=== PATIENT | female | born 1990 | race African-American/Black ===

== ENCOUNTER 2017-04-30 23:50 | Emergency (ER) | payer OTHER ==
[~2017-04-30] VITALS: Ht 160 cm; Wt 63.0 kg
[~2017-04-30 23:50] MED LIST: ALBU0.086 INH; ALBU17I INH; ALBU6.7H INH; PRED20 PO
[2017-04-30 23:52] VITALS: BP 122/62; PULSE 67; RESP 18; TEMP 98.7; O2SAT 100
[2017-05-01] MEDS ORDERED: SYMB80AE INH (00:09)
[2017-05-01] MEDS ORDERED: ALBUAER3 INH (00:09)
[2017-05-01 00:22] LABS: BLOOD, URINE NEG (NEG); GLUCOSE,URINE NEG (NEG); KETONE, URINE NEG (NEG); NITRITE,URINE NEG (NEG); SQUAMOUS EPITHELIAL CELL URINE <1 /hpf (0-5); URINE COLOR LIGHT-YELLOW (YELLW/STRAW)
[2017-05-01 00:25] LABS: COMMENT (UR) CULT NOT INDICATED; CULTURE IF INDICATED CULT NOT INDICATED
--- NOTE | 2017-05-01 00:44 | PD ---
HPI Chief Complaint: Abdominal Pain Time Seen by Provider: 00:00 Travel History International Travel<30 days: No Contact w/Intl Traveler<30days: No Traveled to known affect area: No History of Present Illness HPI Patient is 26-year-old female says she is 10 weeks and is having bilateral lower abdominal pain. No dysuria no flank pain no fevers no chills. No past medical history. Patient reports focally right lower quadrant pain that is dull and aching right lower quadrant is more more painful than suprapubic or left. Denies nausea denies vomiting denies change in bowel habits. Bedside sonogram done by this Barney shows a M-mode heart at 167 and crown-rump length is 10 weeks 2 days by measurements by this Barney POC ultrasound bedside [facility] Past Medical History Asthma: Yes Diminished Hearing: No Integumentary: Yes (eczema) Immunizations Current: Yes Pneumonia: Yes ?: Past Surgical History Surgical History: No Previous Surgery Social History Alcohol Use: No Tobacco Use: No Substance Use: No Allergies-Medications (Allergen,Severity, Reaction): Coded Allergies: fish oil (Unverified Allergy, Severe, lip swelling, SOB, hives, 04/30/17) ipratropium (Unverified Allergy, Severe, SOB, swelling, hives, 04/30/17) Reported Meds & Prescriptions Reported Meds & Active Scripts Active Reported Symbicort Inh (Budesonide/Formoterol Fumarate) 80-4.5 Mcg/Act Aero 2 Puff INH Q12HR Proair Hfa 8.5 GM Inh (Albuterol Sulfate) 90 Mcg/Act Aer 2 Puff INH Q4-6H PRN 108 mcg/actuation Review of Systems Except as stated in HPI: all other systems reviewed are Neg Gastrointestinal: Positive: Abdominal Pain Physical Exam Narrative GENERAL: Nontoxic-appearing awake alert oriented 3 SKIN: Warm and dry. HEAD: Atraumatic. Normocephalic. EYES: Pupils equal and round. No scleral icterus. No injection or drainage. ENT: No nasal bleeding or discharge. Mucous membranes pink and moist. NECK: Trachea midline. No JVD. CARDIOVASCULAR: Regular rate and rhythm. RESPIRATORY: No accessory muscle use. Clear to auscultation. Breath sounds equal bilaterally. GASTROINTESTINAL: Abdomen soft, bilateral lower abdominal tenderness as well as suprapubic tenderness. Hepatic and splenic margins not palpable. MUSCULOSKELETAL: Extremities without clubbing, cyanosis, or edema. No obvious deformities. NEUROLOGICAL: Awake and alert. No obvious cranial nerve deficits. Motor grossly within normal limits. Five out of 5 muscle strength in the arms and legs. Normal speech. PSYCHIATRIC: Appropriate mood and affect; insight and judgment normal. POC ultrasound bedside.. M-mode heart seen measured at 167 on 3 different modes & crown-rump length is 10 weeks 2 days based on measurements correlates well with her dates Data Data Last Documented VS Vital Signs Date Time Temp Pulse Resp B/P (MAP) Pulse Ox O2 Delivery O2 Flow Rate FiO2 04/30/17 23:52 98.7 67 18 122/62 (82) 100 Room Air Orders Orders Urinalysis - C+S If Indicated (05/01/17 00:00) Ed Urine Pregnancytest Poc (05/01/17 00:02) Complete Blood Count With Diff (05/01/17 01:15) Comprehensive Metabolic Panel (05/01/17 01:15) Lipase (05/01/17 01:15) C-Reactive Protein (Crp) (05/01/17 01:15) Sodium Chlor 0.9% 1000 Ml Inj (Ns 1000 M (05/01/17 03:00) Complete Blood Count With Diff (05/01/17 05:12) Lipase (05/01/17 05:12) Comprehensive Metabolic Panel (05/01/17 05:12) Mri Abdomen W/O Contrast (05/01/17 ) Dext 5%-Nacl 0.45% 1000 Ml Inj (D5w-1/2 (05/01/17 06:45) NPO (05/01/17 06:43) Labs Laboratory Tests Test 05/01/17 00:06 05/01/17 01:19 05/01/17 05:20 Urine Color LIGHT-YELLOW Urine Turbidity CLEAR Urine pH 7.0 Urine Specific [place] 1.006 Urine Protein NEG mg/dL Urine Glucose (UA) NEG mg/dL Urine Ketones NEG mg/dL Urine Occult Blood NEG Urine Nitrite NEG Urine Bilirubin NEG Urine Urobilinogen LESS THAN 2.0 MG/DL Urine Leukocyte Esterase NEG Urine WBC 1 /hpf Urine Squamous Epithelial Cells <1 /hpf Microscopic Urinalysis Comment CULT NOT INDICATED White Blood Count 9.6 TH/MM3 8.9 TH/MM3 Red Blood Count 4.19 MIL/MM3 3.91 MIL/MM3 Hemoglobin 12.4 GM/DL 11.5 GM/DL Hematocrit 36.1 % 33.8 % Mean Corpuscular Volume 86.3 FL 86.5 FL Mean Corpuscular Hemoglobin 29.5 PG 29.5 PG Mean Corpuscular Hemoglobin Concent 34.2 % 34.1 % Red Cell Distribution Width 14.4 % 14.2 % Platelet Count 327 TH/MM3 291 TH/MM3 Mean Platelet Volume 8.8 FL 8.7 FL Neutrophils (%) (Auto) 62.8 % 65.8 % Lymphocytes (%) (Auto) 24.5 % 22.7 % Monocytes (%) (Auto) 8.7 % 7.3 % Eosinophils (%) (Auto) 3.4 % 3.7 % Basophils (%) (Auto) 0.6 % 0.5 % Neutrophils # (Auto) 6.0 TH/MM3 5.8 TH/MM3 Lymphocytes # (Auto) 2.3 TH/MM3 2.0 TH/MM3 Monocytes # (Auto) 0.8 TH/MM3 0.7 TH/MM3 Eosinophils # (Auto) 0.3 TH/MM3 0.3 TH/MM3 Basophils # (Auto) 0.1 TH/MM3 0.0 TH/MM3 CBC Comment DIFF FINAL DIFF FINAL Differential Comment Blood Urea Nitrogen 7 MG/DL 5 MG/DL Creatinine 0.53 MG/DL 0.50 MG/DL Random Glucose 79 MG/DL 82 MG/DL Total Protein 7.2 GM/DL 6.5 GM/DL Albumin 3.4 GM/DL 2.9 GM/DL Calcium Level 8.7 MG/DL 8.3 MG/DL Alkaline Phosphatase 57 U/L 49 U/L Aspartate Amino Transf (AST/SGOT) 20 U/L 14 U/L Alanine Aminotransferase (ALT/SGPT) 20 U/L 17 U/L Total Bilirubin 0.2 MG/DL 0.2 MG/DL Sodium Level 137 MEQ/L 137 MEQ/L Potassium Level 3.6 MEQ/L 3.3 MEQ/L Chloride Level 103 MEQ/L 107 MEQ/L Carbon Dioxide Level 25.0 MEQ/L 23.3 MEQ/L Anion Gap 9 MEQ/L 7 MEQ/L Estimat Glomerular Filtration Rate 171 ML/MIN 183 ML/MIN C-Reactive Protein LESS THAN 0.29 MG/DL Lipase 1219 U/L 543 U/L [facility] Medical Decision Making Medical Screen Exam Complete: Yes Emergency Medical Condition: Yes Differential Diagnosis Pain of early versus round ligament pain versus appendicitis versus UTI versus adnexal pain Narrative Course Patient's repeat exam is now right lower quadrant pain focal her lipase comes back at 1219 repeat labs it is still elevated but less so at 543 right lower quadrant pain still focally present I feel is indicated to do an MRI to rule out appendicitis or pancreatitis in this woman 10 weeks patient agrees to stay orders placed for MRI in the a.m. 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 heart on M-mode is a 167 multiple different measurements 167-169. [place]-rump length is 10 weeks 2 days I dates and measurement correlate ultrasound done by this M.D. bedside patient reassured activity seen as well Diagnosis Primary Impression: Pain in the abdomen Raymond Rivas MD May 01, 2017 00:44
[2017-05-01 01:28] LABS: BASOPHIL # 0.1 TH/MM3 (0-0.2); BASOPHIL % 0.6 % (0.0-2.0); EOSINOPHIL # 0.3 TH/MM3 (0-0.4); EOSINOPHIL % 3.4 % (0.0-4.0); HEMATOCRIT 36.1 % (35.0-46.0); HEMO FLAGS DIFF FINAL; LYMPH % 24.5 % (9.0-44.0); LYMPHOCYTE # 2.3 TH/MM3 (1.0-4.8); MEAN CELL VOLUME 86.3 FL (80.0-100.0); MEAN CORPUSCULAR HEMOGLOBIN 29.5 PG (27.0-34.0); MEAN CORPUSCULAR HGB CONC 34.2 % (32.0-36.0); MONO % 8.7 % (0.0-8.0); NEUT % 62.8 % (16.0-70.0); PLATELET COUNT 327 TH/MM3 (150-450); RED BLOOD COUNT 4.19 MIL/MM3 (4.00-5.30); RED CELL DISTRIBUTION WIDTH 14.4 % (11.6-17.2); WHITE BLOOD COUNT 9.6 TH/MM3 (4.0-11.0)
[2017-05-01 01:52] LABS: ALT (GPT) 20 U/L (10-53); ANION GAP 9 MEQ/L (5-15); AST (GOT) 20 U/L (15-37); BLOOD UREA NITROGEN 7 MG/DL (7-18); CHLORIDE 103 MEQ/L (98-107); GLOMERULAR FILTRATION RATE 171 ML/MIN (>89); POTASSIUM 3.6 MEQ/L (3.5-5.1); SODIUM (NA) 137 MEQ/L (136-145)
[2017-05-01 01:54] LABS: ALKALINE PHOSPHATASE 57 U/L (45-117); TOTAL BILIRUBIN ADULT 0.2 MG/DL (0.2-1.0)
[2017-05-01] MEDS ORDERED: SODIUM CHLOR 0.9% 1000 ML INJ 1,000 ML IV ONE (03:00)
[2017-05-01 05:31] LABS: AUTOMATED NEUTROPHIL # 5.8 TH/MM3 (1.8-7.7); BASOPHIL % 0.5 % (0.0-2.0); EOSINOPHIL # 0.3 TH/MM3 (0-0.4); EOSINOPHIL % 3.7 % (0.0-4.0); HEMATOCRIT 33.8 % (35.0-46.0); HEMO FLAGS DIFF FINAL; LYMPH % 22.7 % (9.0-44.0); MEAN CELL VOLUME 86.5 FL (80.0-100.0); MEAN CORPUSCULAR HEMOGLOBIN 29.5 PG (27.0-34.0); MEAN CORPUSCULAR HGB CONC 34.1 % (32.0-36.0); MONO % 7.3 % (0.0-8.0); NEUT % 65.8 % (16.0-70.0); PLATELET COUNT 291 TH/MM3 (150-450); RED BLOOD COUNT 3.91 MIL/MM3 (4.00-5.30); RED CELL DISTRIBUTION WIDTH 14.2 % (11.6-17.2); WHITE BLOOD COUNT 8.9 TH/MM3 (4.0-11.0)
[2017-05-01 06:07] LABS: ALT (GPT) 17 U/L (10-53); ANION GAP 7 MEQ/L (5-15); AST (GOT) 14 U/L (15-37); BICARBONATE 23.3 MEQ/L (21.0-32.0); BLOOD UREA NITROGEN 5 MG/DL (7-18); CHLORIDE 107 MEQ/L (98-107); GLOMERULAR FILTRATION RATE 183 ML/MIN (>89); POTASSIUM 3.3 MEQ/L (3.5-5.1); SODIUM (NA) 137 MEQ/L (136-145)
[2017-05-01 06:10] LABS: ALKALINE PHOSPHATASE 49 U/L (45-117); TOTAL BILIRUBIN ADULT 0.2 MG/DL (0.2-1.0)
[2017-05-01] MEDS ORDERED: DEXT 5%-NACL 0.45% 1000 ML INJ 1,000 ML IV SCH (06:45)
--- NOTE | 2017-05-01 07:13 | PD ---
Data Data Last Documented VS Vital Signs Date Time Temp Pulse Resp B/P (MAP) Pulse Ox O2 Delivery O2 Flow Rate FiO2 05/01/17 10:45 05/01/17 07:21 61 16 100 Room Air 04/30/17 23:52 98.7 Orders Orders Urinalysis - C+S If Indicated (05/01/17 00:00) Ed Urine Pregnancytest Poc (05/01/17 00:02) Complete Blood Count With Diff (05/01/17 01:15) Comprehensive Metabolic Panel (05/01/17 01:15) Lipase (05/01/17 01:15) C-Reactive Protein (Crp) (05/01/17 01:15) Sodium Chlor 0.9% 1000 Ml Inj (Ns 1000 M (05/01/17 03:00) Complete Blood Count With Diff (05/01/17 05:12) Lipase (05/01/17 05:12) Comprehensive Metabolic Panel (05/01/17 05:12) Mri Abdomen W/O Contrast (05/01/17 ) Dext 5%-Nacl 0.45% 1000 Ml Inj (D5w-1/2 (05/01/17 06:45) NPO (05/01/17 06:43) Ed Discharge Order (05/01/17 10:08) Labs Laboratory Tests Test 05/01/17 00:06 05/01/17 01:19 05/01/17 05:20 Urine Color LIGHT-YELLOW Urine Turbidity CLEAR Urine pH 7.0 Urine Specific [place] 1.006 Urine Protein NEG mg/dL Urine Glucose (UA) NEG mg/dL Urine Ketones NEG mg/dL Urine Occult Blood NEG Urine Nitrite NEG Urine Bilirubin NEG Urine Urobilinogen LESS THAN 2.0 MG/DL Urine Leukocyte Esterase NEG Urine WBC 1 /hpf Urine Squamous Epithelial Cells <1 /hpf Microscopic Urinalysis Comment CULT NOT INDICATED White Blood Count 9.6 TH/MM3 8.9 TH/MM3 Red Blood Count 4.19 MIL/MM3 3.91 MIL/MM3 Hemoglobin 12.4 GM/DL 11.5 GM/DL Hematocrit 36.1 % 33.8 % Mean Corpuscular Volume 86.3 FL 86.5 FL Mean Corpuscular Hemoglobin 29.5 PG 29.5 PG Mean Corpuscular Hemoglobin Concent 34.2 % 34.1 % Red Cell Distribution Width 14.4 % 14.2 % Platelet Count 327 TH/MM3 291 TH/MM3 Mean Platelet Volume 8.8 FL 8.7 FL Neutrophils (%) (Auto) 62.8 % 65.8 % Lymphocytes (%) (Auto) 24.5 % 22.7 % Monocytes (%) (Auto) 8.7 % 7.3 % Eosinophils (%) (Auto) 3.4 % 3.7 % Basophils (%) (Auto) 0.6 % 0.5 % Neutrophils # (Auto) 6.0 TH/MM3 5.8 TH/MM3 Lymphocytes # (Auto) 2.3 TH/MM3 2.0 TH/MM3 Monocytes # (Auto) 0.8 TH/MM3 0.7 TH/MM3 Eosinophils # (Auto) 0.3 TH/MM3 0.3 TH/MM3 Basophils # (Auto) 0.1 TH/MM3 0.0 TH/MM3 CBC Comment DIFF FINAL DIFF FINAL Differential Comment Blood Urea Nitrogen 7 MG/DL 5 MG/DL Creatinine 0.53 MG/DL 0.50 MG/DL Random Glucose 79 MG/DL 82 MG/DL Total Protein 7.2 GM/DL 6.5 GM/DL Albumin 3.4 GM/DL 2.9 GM/DL Calcium Level 8.7 MG/DL 8.3 MG/DL Alkaline Phosphatase 57 U/L 49 U/L Aspartate Amino Transf (AST/SGOT) 20 U/L 14 U/L Alanine Aminotransferase (ALT/SGPT) 20 U/L 17 U/L Total Bilirubin 0.2 MG/DL 0.2 MG/DL Sodium Level 137 MEQ/L 137 MEQ/L Potassium Level 3.6 MEQ/L 3.3 MEQ/L Chloride Level 103 MEQ/L 107 MEQ/L Carbon Dioxide Level 25.0 MEQ/L 23.3 MEQ/L Anion Gap 9 MEQ/L 7 MEQ/L Estimat Glomerular Filtration Rate 171 ML/MIN 183 ML/MIN C-Reactive Protein LESS THAN 0.29 MG/DL Lipase 1219 U/L 543 U/L [facility] Supervised Visit with WAYNE: No Narrative Course Patient care assumed from Dr. Rivas [id number]. This is a female about 10 weeks 2 days gestational age by ultrasound performed by Dr. Rivas at the bedside, heart tones were present by M-mode. She is here for lower quadrant abdominal pain worse on the right side, she did have an elevated lipase but has not been vomiting here in the emergency department. MRI was ordered by previous provider. On my exam she is minimally tender in the right lower quadrant, MRIs in process at this time. MRI shows no evidence of pancreatic mass and fell appendicitis, minimal amount of free fluid in the abdomen. Her abdomen remains benign she states her pain was resolved and her ultrasound was reassuring. She was offered pelvic examination declined at this time. 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 She is stable for discharge. Diagnosis Primary Impression: Pain in the abdomen Disposition: DISCHARGE HOME Condition: Stable Prashant Ornelas MD May 01, 2017 07:13
[2017-05-01 07:21] VITALS: BP 111/53; PULSE 61; RESP 16; O2SAT 100
--- NOTE | 2017-05-01 09:14 | RADRPT ---
EXAM DATE/TIME: 05/01/2017 08:12 [place] COMPARISON: No previous studies available for comparison. INDICATIONS : Right lower quadrant pain since yesterday. MEDICAL HISTORY : None. SURGICAL HISTORY : None. ENCOUNTER: Initial ACUITY: 1 day PAIN SCORE: 3/10 LOCATION: Right lower quadrant abdomen TECHNIQUE: Multiplanar, multisequence magnetic resonance imaging of the abdomen was performed without contrast. FINDINGS: LIVER: Normal size with normal signal intensity. No lesion is identified. Portal vein is within normal limi ts. BILIARY: There is no intra- or extra-hepatic biliary ductal dilatation. Gallbladder contains no stones. SPLEEN: Within normal limits. PANCREAS: Within normal limits. ADRENALS: Within normal limits. KIDNEYS: Normal size and signal intensity. There is no hydronephrosis or mass. OTHER: There is free fluid within the right adnexal region which is nonspecific. There is a single intrauter ine noted. There is no MRI evidence of acute appendicitis. Aorta is nonaneurysmal. There is no lymphadenopathy. CONCLUSION: 1. Free fluid within the right adnexal region which is nonspecific. 2. No MRI evidence of acute appendicitis. 3. Single intrauterine . Prashant Garcia MD on May 01, 2017 at 9:04 Board Certified Radiologist. This report was verified electronically.
== END 2017-05-01 10:49 | disposition home or self-care (01) ==
LOC: NEPC 23:50
DX: O26.891 Other specified pregnancy related conditions, first trimester (principal); R10.31 Right lower quadrant pain; O99.511 Diseases of the respiratory system complicating pregnancy, first trimester; J45.909 Unspecified asthma, uncomplicated; Z79.51 Long term (current) use of inhaled steroids; Z3A.10 10 weeks gestation of pregnancy
CPT/HCPCS: 74181; 80053; 81001; 83690; 84703; 85025; 86140; 96360; 99285; J7030

== ENCOUNTER 2017-06-16 00:37 | Emergency (ER) | payer OTHER ==
[~2017-06-16 00:37] MED LIST changes: -ALBU0.086 INH; -ALBU17I INH; -ALBU6.7H INH; +ALBUAER3 INH; -PRED20 PO; +SYMB80AE INH
--- NOTE | 2017-06-16 02:00 | PD ---
HPI Chief Complaint Lower abdominal pain Date Seen: Jun 16, 2017 Time Seen: 01:55 Travel History International Travel<30 Days: No Contact w/Intl Traveler<30Days: No Known Affected Area: No History of Present Illness HPI Patient is 26-year-old black female at 18-19 weeks who complains of lower abdominal pain of since earlier in the day but just did not get better with rest , denies bleeding or leakage of fluid, denies vaginal discharge odor or itching irritation. heart tones are detected. No contractions noted. Weeks Gestation: 18 Para: 0 : 1 History Social History Alcohol Use: No Tobacco Use: No Substance Abuse: No Allergies-Medications (Allergen,Severity, Reaction): Coded Allergies: fish oil (Unverified Allergy, Severe, lip swelling, SOB, hives, 04/30/17) ipratropium (Unverified Allergy, Severe, SOB, swelling, hives, 04/30/17) Home Meds Reported Medications Budesonide-Formoterol Inh (Symbicort Inh) 80-4.5 Mcg/Act Aero, 2 PUFF INH Q12HR for Asthma Management, #1 INHALER 0 Refills 05/01/17 Albuterol 8.5 GM Inh (Proair Hfa 8.5 GM Inh) 90 Mcg/Act Aer, 2 PUFF INH Q4-6H Y for SHORTNESS OF BREATH, #1 INHALER 0 Refills 108 mcg/actuation 05/01/17 Review of Systems General / Constitutional: No: Fever, Weight Gain, Chills, Other Eyes: No: Diploplia, Blurred Vision, Visual changes, Pain, Photophobia HENT: No: Headaches, Vertigo, Lightheadedness Cardiovascular: No: Irregular Rhythm, Chest Pain or Discomfort, Palpitations, Tachycardia, Syncope, Varicosities, Edema, Cyanosis Respiratory: No: Cough, Short of Breath, Other Gastrointestinal: Abdominal Pain, No: Nausea, Vomiting, Diarrhea Genitourinary: No: Decreased Urinary Output, Oliguria Musculoskeletal: No: Limited ROM, Weakness, Cramping, Edema, Pain Skin: No Rash, No Itching, No Dryness, No Lumps, No Change in Pigmentation, No Change in Nails, No Alopecia, No Lesions Neurologic: No: Weakness, Dizziness, Syncope, Focal Abnormalities, Coordination Problem, Headache, Slurred Speech, Seizures Psychiatric: No: Depression, Suicidal Ideations, Homicidal Ideation Endocrine: No: Heat Intolerance, Cold Intolerance, Polydipsia, Polyuria, Other Physical Exam Narrative GENERAL: Well-nourished, well-developed patient. SKIN: Warm and dry. HEAD: Normocephalic and atraumatic. EYES: No scleral icterus. No injection or drainage. ENT: No nasal drainage noted. Mucous membranes pink. Airway patent. NECK: Supple, trachea midline. No JVD. CARDIOVASCULAR: Regular rate and rhythm without murmurs, gallops, or rubs. RESPIRATORY: Breath sounds equal bilaterally. No accessory muscle use. BREASTS: Bilateral exam showed no masses , no retractions, no nipple discharge. ABDOMEN/GI: Abdomen soft, non-tender, bowel sounds present, no rebound, no guarding Gravid to [-20] weeks size Fundal Height: [just above umb-] GENITOURINARY: External Genitalia: intact and normal in appearance BUS glands: [-] Cervix: [-post] Dilatation: [closed-] Effacement: [thick-] Station: [-3] Membranes: [intact ] Uterine Contractions: [none-] FHT's: 140s EXTREMITIES: No cyanosis or edema. BACK: Nontender without obvious deformity. No CVA tenderness. NEUROLOGICAL: Awake and alert. Motor and sensory grossly within normal limits. Five out of 5 muscle strength in all muscle groups. Normal speech. Data Data Labs OB ED urine dipstick negative MDM Interpretation(s) Patient is 26-year-old black female at 18-19 weeks with lower abdominal pain for a day, no bleeding or leakage of fluid, no vaginal discharge odor or irritation. heart tones are detected in the 140s. No contractions seen. Cervix is closed thick and high. Urine dipstick negative. Pain likely related to round ligament strain soft tissue strain and pain Plan The patient to be at bedrest at home, increase of fluid for hydration purposes, use Tylenol liberally, heating pad or hot bath for symptoms. Follow-up with OB provider. Diagnosis Diagnosis: Primary Impression: Pain of round ligament during Additional Impression: 18 weeks gestation of Disposition: DISCHARGE HOME Condition: Stable Taran Rosa II, MD Jun 16, 2017 02:00
== END 2017-06-16 02:11 | disposition home or self-care (01) ==
LOC: HOBED 00:37
DX: O26.892 Other specified pregnancy related conditions, second trimester (principal); R10.2 Pelvic and perineal pain; Z3A.18 18 weeks gestation of pregnancy
CPT/HCPCS: 99284

== ENCOUNTER 2017-06-30 07:54 | Emergency (ER) | payer OTHER, MEDICAID ==
[2017-06-30 07:58] VITALS: BP 118/56; PULSE 99; RESP 16; TEMP 98.7; O2SAT 100
[2017-06-30] MEDS ORDERED: LACTATED RINGER'S 1000 ML INJ 1,000 ML IV ONE (09:00)
--- NOTE | 2017-06-30 09:03 | PD ---
HPI Chief Complaint 20 weeks and 6 days Nausea, vomiting, diarrhea 1 day Date Seen: Jun 30, 2017 Time Seen: 08:40 (Stanton Mitchell MD) Travel History International Travel<30 Days: No Contact w/Intl Traveler<30Days: No Known Affected Area: No (Stanton Mitchell MD) History of Present Illness HPI Patient is a 26 yo at 20 weeks and 6 days . EDC 11-03-[address] Kris Gale. care previously complicated only by asthma. Pt reports nausea, vomiting diarrhea since yesterday. No fevers or chills. Vomited last just prior to arrival. Multiple diarrheal episodes overnight. Able to keep down fluids. Patient states several family members with similar symptoms. Active movements Weeks Gestation: 21 Para: 0 : 1 (Stanton Mitchell MD) History Past Medical History Narrative Medical Asthma (Stanton Mitchell MD) Obstetric History Obstetric History Primigravida (Stanton Mitchell MD) Past Surgical History Surgical History: No Previous Surgery (Stanton Mitchell MD) Family History Family History: Negative (Stanton Mitchell MD) Social History Alcohol Use: No Tobacco Use: No Substance Abuse: No (Stanton Mitchell MD) Allergies-Medications (Allergen,Severity, Reaction): Coded Allergies: fish oil (Unverified Allergy, Severe, Anaphylaxis, 06/30/17) Pt can have shrimp and shellfish, but not regular fish. ipratropium (Unverified Allergy, Severe, SOB, swelling, hives, 04/30/17) peanut (Verified Allergy, Severe, Anaphylaxis, 06/30/17) Home Meds Reported Medications Multiple Vitamins W/ Minerals (One-A-Day For Her Vitacra) 1 Chew, 1 TAB CHEW DAILY for Nutritional Supplement, TAB 0 Refills 06/30/17 Budesonide-Formoterol Inh (Symbicort Inh) 80-4.5 Mcg/Act Aero, 2 PUFF INH Q12HR for Asthma Management, #1 INHALER 0 Refills 05/01/17 Discontinued Reported Medications Albuterol 8.5 GM Inh (Proair Hfa 8.5 GM Inh) 90 Mcg/Act Aer, 2 PUFF INH Q4-6H Y for SHORTNESS OF BREATH, #1 INHALER 0 Refills 108 mcg/actuation 05/01/17 Review of Systems Except as stated in HPI: all other systems reviewed are Neg (Stanton Mitchell MD) Physical Exam Vital Signs Date Time Temp Pulse Resp B/P (MAP) Pulse Ox O2 Delivery O2 Flow Rate FiO2 06/30/17 07:58 98.7 99 16 118/56 (76) 100 Narrative GENERAL: Well-nourished, well-developed patient. SKIN: Warm and dry. HEAD: Normocephalic and atraumatic. EYES: No scleral icterus. No injection or drainage. ENT: No nasal drainage noted. Mucous membranes pink. Airway patent. NECK: Supple, trachea midline. No JVD. CARDIOVASCULAR: Regular rate and rhythm without murmurs, gallops, or rubs. RESPIRATORY: Breath sounds equal bilaterally. No accessory muscle use. BREASTS: Bilateral exam showed no masses , no retractions, no nipple discharge. ABDOMEN/GI: Abdomen soft, non-tender, bowel sounds present, no rebound, no guarding Gravid to [20] weeks size Fundal Height: [-] GENITOURINARY: Uterine Contractions: [none] FHT's: Category: [-] Baseline: [130s] Reactive: [-] Variability: [-] Decels: [-] EXTREMITIES: No cyanosis or edema. BACK: Nontender without obvious deformity. No CVA tenderness. NEUROLOGICAL: Awake and alert. Motor and sensory grossly within normal limits. Five out of 5 muscle strength in all muscle groups. Normal speech. (Stanton Mitchell MD) Data Data Vital Signs Reviewed: Yes Orders Orders Vital Signs (Adult) .ON ADMISSION (06/30/17 08:34) ^ Labor Status (06/30/17 08:34) Heart (06/30/17 08:34) Urinalysis - C+S If Indicated (06/30/17 08:34) Diet Liquid (06/30/17 Breakfast) Cbc No Diff, Includes Plts (06/30/17 08:34) Basic Metabolic Panel (Bmp) (06/30/17 08:34) Ondansetron Inj (Zofran Inj) (06/30/17 08:45) (Stanton Mitchell MD) [facility] Medical Record Reviewed: Yes Plan 26 yo at 20 weeks and 6 days, presents with nausea , vomiting and diarrhea since yesterday. Reports sick contacts at home. Likely gastroenteritis We will start antiemetic/IVF Check CBC/CMP. (Stanton Mitchell MD) Diagnosis Diagnosis: Primary Impression: with 20 completed weeks gestation Additional Impression: Gastroenteritis Scripts Ondansetron Odt (Zofran Odt) 4 Mg Tab 4 MG SL Q6HR Y for Nausea/Vomiting for 7 Days, #20 TAB 0 Refills Prov: Taran Rosa II, MD 06/30/17 Stanton Mitchell MD Jun 30, 2017 09:03 Taran Rosa II, MD Jun 30, 2017 10:03
[2017-06-30] MEDS ORDERED: MULT1CHW CHEW (09:06)
[2017-06-30 09:18] LABS: HEMATOCRIT 32.7 % (35.0-46.0); HEMOGLOBIN 11.2 GM/DL (11.6-15.3); MEAN CORPUSCULAR HEMOGLOBIN 30.9 PG (27.0-34.0); MEAN CORPUSCULAR HGB CONC 34.3 % (32.0-36.0); MEAN PLATELET VOLUME 10.8 FL (7.0-11.0); PLATELET COUNT 218 TH/MM3 (150-450); RED BLOOD COUNT 3.63 MIL/MM3 (4.00-5.30); RED CELL DISTRIBUTION WIDTH 14.4 % (11.6-17.2); WHITE BLOOD COUNT 11.8 TH/MM3 (4.0-11.0)
[2017-06-30 09:22] LABS: BILIRUBIN, URINE NEG (NEG); BLOOD, URINE NEG (NEG); GLUCOSE,URINE NEG (NEG); KETONE, URINE NEG (NEG); MUCUS URINE FEW /lpf (OCC); NITRITE,URINE NEG (NEG); PH, URINE 6.5 (5.0-8.5); SQUAMOUS EPITHELIAL CELL URINE 3 /hpf (0-5); URINE COLOR YELLOW (YELLW/STRAW); URINE LEUKOCYTE ESTERASE NEG (NEG)
[2017-06-30] MEDS ORDERED: ONDANSETRON HCL 4 MG/2 ML VIAL IV PUSH ONE (09:30)
[2017-06-30 09:33] LABS: CALCIUM 8.7 MG/DL (8.5-10.1); CREATININE 0.45 MG/DL (0.50-1.00)
[2017-06-30 09:34] LABS: BICARBONATE 23.6 MEQ/L (21.0-32.0)
[2017-06-30] MEDS ORDERED: ZOFR4TAB3 SL (10:03)
== END 2017-06-30 10:51 | disposition home or self-care (01) ==
LOC: HOBED 07:54
DX: K52.9 Noninfective gastroenteritis and colitis, unspecified (principal); O99.512 Diseases of the respiratory system complicating pregnancy, second trimester; J45.909 Unspecified asthma, uncomplicated; Z3A.21 21 weeks gestation of pregnancy
CPT/HCPCS: 80048; 81001; 85027; 96361; 96374; 99284; J2405; J7120

== ENCOUNTER 2017-08-07 20:11 | Emergency (ER) | payer MEDICAID, OTHER ==
[~2017-08-07 20:11] MED LIST changes: -ALBUAER3 INH; +MULT1CHW CHEW; +ZOFR4TAB3 SL
--- NOTE | 2017-08-07 20:42 | PD ---
HPI Chief Complaint Abdominal pain Date Seen: Aug 07, 2017 Time Seen: 20:33 Travel History International Travel<30 Days: No Contact w/Intl Traveler<30Days: No Known Affected Area: No History of Present Illness HPI Patient is 26-year-old black female at 27-1/2 weeks presenting complaining one-day history of abdominal pain began when she was just laying in bed did nothing different. Patient is that she did go to work today though and did nothing particularly eventful or overexerting there. Denies leakage of fluid or bleeding. Baby is active. There are no contractions on the monitor the heart rate tracing is within normal limits for 27 weeks Weeks Gestation: 27 Para: 0 : 1 History Social History Alcohol Use: No Tobacco Use: No Substance Abuse: No Allergies-Medications (Allergen,Severity, Reaction): Coded Allergies: fish oil (Unverified Allergy, Severe, Anaphylaxis, 06/30/17) Pt can have shrimp and shellfish, but not regular fish. ipratropium (Unverified Allergy, Severe, SOB, swelling, hives, 04/30/17) peanut (Verified Allergy, Severe, Anaphylaxis, 06/30/17) Home Meds Active Scripts Ondansetron Odt (Zofran Odt) 4 Mg Tab, 4 MG SL Q6HR Y for Nausea/Vomiting for 7 Days, #20 TAB 0 Refills Prov:Taran Rosa II, MD 06/30/17 Reported Medications Multiple Vitamins W/ Minerals (One-A-Day For Her Vitacra) 1 Chew, 1 TAB CHEW DAILY for Nutritional Supplement, TAB 0 Refills 06/30/17 Budesonide-Formoterol Inh (Symbicort Inh) 80-4.5 Mcg/Act Aero, 2 PUFF INH Q12HR for Asthma Management, #1 INHALER 0 Refills 05/01/17 Review of Systems General / Constitutional: No: Fever, Weight Gain, Chills, Other Eyes: No: Diploplia, Blurred Vision, Visual changes, Pain, Photophobia HENT: No: Headaches, Vertigo, Lightheadedness Cardiovascular: No: Irregular Rhythm, Chest Pain or Discomfort, Palpitations, Tachycardia, Syncope, Varicosities, Edema, Cyanosis Respiratory: No: Cough, Short of Breath, Other Gastrointestinal: Abdominal Pain, No: Nausea, Vomiting, Diarrhea Genitourinary: No: Decreased Urinary Output, Oliguria Musculoskeletal: No: Limited ROM, Weakness, Cramping, Edema, Pain Skin: No Rash, No Itching, No Dryness, No Lumps, No Change in Pigmentation, No Change in Nails, No Alopecia, No Lesions Neurologic: No: Weakness, Dizziness, Syncope, Focal Abnormalities, Coordination Problem, Headache, Slurred Speech, Seizures Psychiatric: No: Depression, Suicidal Ideations, Homicidal Ideation Endocrine: No: Heat Intolerance, Cold Intolerance, Polydipsia, Polyuria, Other Physical Exam Narrative GENERAL: Well-nourished, well-developed patient. SKIN: Warm and dry. HEAD: Normocephalic and atraumatic. EYES: No scleral icterus. No injection or drainage. ENT: No nasal drainage noted. Mucous membranes pink. Airway patent. NECK: Supple, trachea midline. No JVD. CARDIOVASCULAR: Regular rate and rhythm without murmurs, gallops, or rubs. RESPIRATORY: Breath sounds equal bilaterally. No accessory muscle use. BREASTS: Bilateral exam showed no masses , no retractions, no nipple discharge. ABDOMEN/GI: Abdomen soft, slightly-tender, bowel sounds present, no rebound, no guarding Gravid to [27-] weeks size Fundal Height: [-27] GENITOURINARY: External Genitalia: intact and normal in appearance BUS glands: [-] Cervix: [post-] Dilatation: [0-] Effacement: [thick-] Station: [-3] Membranes: [intact ] Uterine Contractions: [no reg-] FHT's: Category: [-1] Baseline: [133-] Reactive: [R-] Variability: [mod-] Decels: [-none] EXTREMITIES: No cyanosis or edema. BACK: Nontender without obvious deformity. No CVA tenderness. NEUROLOGICAL: Awake and alert. Motor and sensory grossly within normal limits. Five out of 5 muscle strength in all muscle groups. Normal speech. Data Data Labs Urine on OB ED negative MDM Interpretation(s) 26-year-old black female T1 P0 2728 weeks he goes to Dr. Gale in [place] for care and presents here with abdominal pain for a day, no bleeding or leakage of fluid. heart rate tracing is reactive, no regular contractions, cervix is thick closed and high. Urine on OB ED is negative Plan Plan to stop the patient IM pain shot if she can find a ride home otherwise she needs to increase her fluids, Tylenol as needed for pain. Heating pad or hot bath pain relief, and bedrest at home as much as possible. She is to return for increasing pain bleeding or leakage. Diagnosis Diagnosis: Primary Impression: Abdominal pain during in second trimester Disposition: 01 DISCHARGE HOME Condition: Stable Taran Rosa II, MD Aug 07, 2017 20:42
== END 2017-08-07 20:30 | disposition home or self-care (01) ==
LOC: HOBED 20:11
DX: O26.892 Other specified pregnancy related conditions, second trimester (principal); R10.9 Unspecified abdominal pain; Z3A.27 27 weeks gestation of pregnancy
CPT/HCPCS: 99283